=== PATIENT | female | born 1995 | race Caucasian/White ===

== ENCOUNTER 2021-06-08 21:09 | Emergency (ER) | payer SELFPAY ==
[~2021-06-08] VITALS: Ht 149.9 cm; Wt 55.0 kg
[2021-06-08] MEDS ORDERED: MORPHINE SULFATE 4 MG/ML CPJ (NOT FOR IM USE) IV STA (22:13)
[2021-06-08] MEDS ORDERED: ONDANSETRON HCL 4MG/2ML INJ IV STA (22:13)
[2021-06-08] MEDS ORDERED: FAMOTIDINE 20MG/2ML VIAL IV STA (22:13)
[2021-06-08] MEDS ORDERED: SODIUM CHLORIDE 0.9% 1,000 ML IV ONE (22:15)
[2021-06-08 22:35] LABS: CHLORIDE 106 mEq/L (98-107); HEMATOCRIT. 38.9 % (36.0-48.0); HEMOGLOBIN. 13.5 g/dL (12.0-16.0); MEAN CORPUSCULAR HEMOGLOBIN 30.5 pg (28.0-32.0); MEAN CORPUSCULAR VOLUME 88.1 fL (81.0-99.0); MEAN PLATELET VOLUME 9.9 fl (7.4-10.4); PLATELET 281 x1000/uL (130-400); RED BLOOD CELL COUNT 4.41 mill/uL (4.2-5.4); RED CELL DISTRIBUTION WIDTH 13.4 % (11.6-14.6)
[2021-06-08 23:02] LABS: PLATELET ESTIMATE NORMAL
[2021-06-08] MEDS ORDERED: HALOPERIDOL LACTATE 5MG/ML VIAL IM ONE (23:15)
[2021-06-09 00:57] LABS: CLARITY URINE CLEAR (CLEAR); COLOR URINE YELLOW (YELLOW); KETONES URINE TRACE (NEGATIVE); LEUKOCYTE ESTERASE URINE NEGATIVE (NEGATIVE); NITRITE URINE NEGATIVE (NEGATIVE); OCCULT BLOOD URINE NEGATIVE (NEGATIVE); PROTEIN URINE NEGATIVE (NEGATIVE); SPECIFIC GRAVITY URINE 1.019 (1.005-1.030); UROBILINOGEN URINE 0.2 E.U./dL (0.2-1.0)
[2021-06-09 01:08] LABS: *AMPHETAMINES SCREEN URINE NEGATIVE (NEGATIVE); *BARBITURATES SCREEN URINE NEGATIVE (NEGATIVE); *COCAINE SCREEN URINE NEGATIVE (NEGATIVE)
[2021-06-09 01:09] LABS: METHADONE URINE SCREEN NEGATIVE (NEGATIVE); OPIATES URINE SCREEN NEGATIVE (NEGATIVE); PHENCYCLIDINE URINE SCREEN NEGATIVE (NEGATIVE)
[2021-06-09 01:17] LABS: *BENZODIAZEPINES SCREEN URINE PRESUMTIVE POSITIVE (NEGATIVE); CANNABINOID URINE SCREEN PRESUMTIVE POSITIVE (NEGATIVE)
[2021-06-09] MEDS ORDERED: DOCO200C5 MT (02:17)
[2021-06-09 02:36] VITALS: BP 106/76
== END 2021-06-09 02:37 | disposition home or self-care (01) ==
LOC: ER 21:09
DX: O26.891 Other specified pregnancy related conditions, first trimester (principal); O21.8 Other vomiting complicating pregnancy; Z3A.12 12 weeks gestation of pregnancy; F12.10 Cannabis abuse, uncomplicated
CPT/HCPCS: 36415; 76801; 80053; 80305; 81003; 81025; 83690; 84702; 85025; 96361; 96372; 96374; 96375; 99284; J1630; J2405; J3490; J7030